=== PATIENT | female | born 1940 | race Caucasian/White ===

== ENCOUNTER 2019-12-09 10:18 | Outpatient (CLI) | payer MEDICARE, BC ==
[~2019-12-09 10:18] MED LIST: ATORVASTATIN CA20 MG ORAL; CITALOPRAM HBR10 M1 ORAL; COZAAR50 MG ORAL; LORAZEPAM0.5 MG ORAL; MULTIVITAMINS1 EAC2 ORAL
--- NOTE | 2019-12-09 11:10 | Diagnostic Imaging Report ---
Indication: Cough Comparison: None 2 views of the chest obtained. Findings: No consolidative opacities are identified. Mild prominence of the interstitium noted likely age-related or senescent type changes. Heart size is normal. An azygos fissure is incidentally noted. The aorta is mildly ectatic and calcified. Bones are osteopenic. Multilevel thoracic vertebral enthesophytes noted. IMPRESSION: Some prominence of the pulmonary interstitium likely senescent changes. Degenerative changes of the thoracic spine. Azygous fissure Arterial vascular disease
== END 2019-12-09 12:18 | disposition home or self-care (01) ==
LOC: RAD 10:18
DX: R05 Cough (principal); M85.80 Other specified disorders of bone density and structure, unspecified site; I99.9 Unspecified disorder of circulatory system
CPT/HCPCS: 71046